=== PATIENT | male | born 1955 | race Caucasian/White ===

== ENCOUNTER → 2018-09-19 | Outpatient (CLI) | payer BC ==
--- NOTE | 2018-09-19 16:45 | XR ---
EXAMINATION TYPE: XR thoracic spine 3 views, XR lumbar spine 3V XR pelvis AP view, XR sacroiliac joint comp 3 views BILAT, DATE OF EXAM: 09/19/2018 COMPARISON: NONE HISTORY: 63-year-old male with pain, ankylosing spondylitis FINDINGS: Thoracic spine: 12 rib bearing thoracic vertebral bodies. Dagger sign is demonstrated with ossification along the sup ra spinous ligament. Bridging syndesmophytes are noted. Accentuated mid thoracic kyphosis with preser sridhar vertebral body height and alignment. Lumbar spine: 5 lumbar type vertebral bodies. Mild degenerative disc disease L5-S1. Facet arthropathy lower lumbar spine. Vertebral body heights are preserved and alignment is maintained. Some mild endplate spondylos is is noted. Pelvis: Mild degenerative change at the pubic symphysis. Additional mild degenerative change in both hips wit h superior femoral head neck junction osseous excrescences and marginal spurring. No acute fracture o r dislocation. SI joints: There is slight subarticular sclerosis and possible subtle subarticular erosions along the iliac side s of the SI joints on the oblique views. No SI joint space widening. IMPRESSION: 1. Syndesmophytes seen predominantly in the thoracic spine along with some ossification along the sup raspinous ligament which has been referred to as dagger sign. 2. However, changes in the lumbar spine show only mild endplate spondylosis without any bridging synd esmophytes. 3. At the SI joints, there may be mild degenerative changes and possible very early subtle subarticul ar erosion but no joint space widening or bony ankylosis. 4. The overall pattern is somewhat atypical but may still reflect ankylosing spondylitis. IBD arthrop athy is an additional consideration. If further evaluation is desired, consider MRI of the SI joints. 5. Mild to moderate OA at both hips.
[2018-09-19 18:58] LABS: Hepatitis A Antibody IgM Non-Reactive (Non-Reactive); Hepatitis B Core IgM Non-Reactive (Non-Reactive)
== END ==
LOC: RADXRMAIN 12:45
PROVIDERS: ATTEND Internal Medicine Rheumatology
DX: M48.8X4 Other specified spondylopathies, thoracic region (principal); M47.816 Spondylosis without myelopathy or radiculopathy, lumbar region; M16.0 Bilateral primary osteoarthritis of hip; M45.9 Ankylosing spondylitis of unspecified sites in spine; K71.6 Toxic liver disease with hepatitis, not elsewhere classified; M06.4 Inflammatory polyarthropathy; R76.12 Nonspecific reaction to cell mediated immunity measurement of gamma interferon antigen response without active tuberculosis
CPT/HCPCS: 72070; 72100; 72170; 72202; 80074; 86038

== ENCOUNTER → 2018-10-11 | Outpatient (CLI) | payer BC | END | disposition home or self-care (01) | LOC: CPPFTMAIN 10:42 | PROVIDERS: ATTEND Internal Medicine Rheumatology | DX: R94.2 Abnormal results of pulmonary function studies (principal) | CPT/HCPCS: 94060; 94726; 94729 ==

== ENCOUNTER → 2021-12-16 | Outpatient (CLI) | payer BC ==
[~2021-12-16] MED LIST: BEBTELOVIMAB (EUA) 175 MG/2 ML VIAL IV NR
[2021-12-16 14:09] VITALS: RESP 16; TEMP 98.2
[2021-12-16 15:12] VITALS: BP 123/89; PULSE 60
== END | disposition home or self-care (01) ==
LOC: PROCWHC3 13:07
PROVIDERS: ATTEND Nurse Practitioner Adult Health
DX: U07.1 COVID-19 (principal)
CPT/HCPCS: Q0222; M0222